=== PATIENT | female | born 1995 | race African-American/Black ===

== ENCOUNTER 2021-07-29 23:51 | Emergency (ER) | payer OTHER ==
[~2021-07-29] VITALS: Ht 170.2 cm; Wt 72.6 kg
[~2021-07-29 23:51] MED LIST: PENICILLIN V P500 MG PO; TRINATE TABLET1 TAB PO
[2021-07-30 00:40] LABS: URINE BILIRUBIN NEGATIVE (Negative); URINE BLOOD 1+ (Negative); URINE CLARITY CLEAR; URINE COLOR YELLOW; URINE GLUCOSE-RANDOM* NEGATIVE (Negative); URINE KETONES NEGATIVE (Negative); URINE LEUKOCYTES-REFLEX TRACE (Negative); URINE NITRITE-REFLEX NEGATIVE (Negative); URINE PROTEIN (DIPSTICK) NEGATIVE (Negative); URINE UROBILINOGEN 0.2 E.U./dl (0.2-1.0)
[2021-07-30 00:56] LABS: BACTERIA-REFLEX 1-9 Few /HPF (None Seen); CASTS None Seen /LPF (None Seen); CRYSTALS None Seen /LPF (None Seen); MUCUS 0-3 Light strn/LPF (None Seen); SQUAMOUS 0-3 Few /LPF (0-3); URINE RBC 1-2 Rare /HPF (NONE SEEN)
[2021-07-30 00:57] LABS: URINE WBC-REFLEX 6-15 Few /HPF (0-5)
[2021-07-30] MEDS ORDERED: BACTRIM DS TAB1 EACH PO (01:35)
[2021-07-30] MEDS ORDERED: IBUPROFEN 600600 M1 PO (01:38)
[2021-07-30 01:40] VITALS: BP 115/62
== END 2021-07-30 01:41 | disposition home or self-care (01) ==
LOC: ER 23:51
PROVIDERS: Emergency Medicine
DX: N39.0 Urinary tract infection, site not specified (principal); K02.9 Dental caries, unspecified; F17.200 Nicotine dependence, unspecified, uncomplicated